=== PATIENT | male | born 2000 | race Caucasian/White ===

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

== ENCOUNTER 2021-01-02 18:04 | Emergency (ER) | payer OTHER ==
[~2021-01-02] VITALS: Ht 170.2 cm; Wt 54.4 kg
[2021-01-02] MEDS ORDERED: DOXYCYCLINE 10100 MG PO (18:40)
[2021-01-02 18:55] VITALS: BP 134/86
== END 2021-01-02 18:55 | disposition home or self-care (01) ==
LOC: M.ERS 18:04
DX: J34.0 Abscess, furuncle and carbuncle of nose (principal); Z98.890 Other specified postprocedural states